=== PATIENT | female | born 1995 | race African-American/Black ===

== ENCOUNTER 2018-03-22 18:54 | Emergency (ER) | payer OTHER, SELFPAY ==
[2018-03-22 19:16] VITALS: BP 89/52; PULSE 84; RESP 15; TEMP 36.8; O2SAT 100
--- NOTE | 2018-03-22 19:19 | ED_ITS ---
HPI - Female Genitourinary <Priscila Wen PA-C - Last Filed: 03/22/18 21:58> General Chief complaint: Urogenital-Female Stated complaint: ITCHY GENITAL AREA Time Seen by Provider: 03/22/18 19:17 Source: patient Mode of arrival: ambulatory Limitations: no limitations History of Present Illness HPI Narrative: This 23-year-old female comes in due to 2 day history of vaginal itching and irritation. She has had some new discharge that she states is yellowish in color. She states that she does not have any pelvic pain or dysuria. She states it only feels like the tissue itself is irritated. She has not abdominal pain, fever or any other new complaints. She thinks this might be similar to previous yeast infection. She has not been on any new medications or antibiotics. She denies possibility of , LMP 2 weeks ago. She is monogamous, states she did have an STD panel recently which was negative. Related Data Home Medications Medication Instructions Recorded Confirmed No Known Home Medications 03/22/18 03/22/18 Allergies Allergy/AdvReac Type Severity Reaction Status Date / Time Sulfa (Sulfonamide Allergy Verified 03/22/18 19:16 Antibiotics) Review of Systems <Priscila Wen PA-C - Last Filed: 03/22/18 21:58> Review of Systems All systems reviewed & are unremarkable except as noted in HPI and below Exam <Priscila Wen PA-C - Last Filed: 03/22/18 21:58> Narrative Exam Narrative: GENERAL APPEARANCE: Patient sitting comfortably, in no distress. LUNGS: Clear to auscultation bilaterally. HEART: Rate and rhythm regular without murmur, normal S1 and S2, no S3 or S4. ABDOMEN: Soft, nontender, nondistended : Normal external genitalia, normal vaginal mucosa, there is a small amount of white discharge, normal cervix without lesions, no palpable uterine or adnexal masses or tenderness, no CMT Initial Vital Signs Initial Vital Signs: Vital Signs Temperature 98.3 F 03/22/18 19:16 Pulse Rate 84 03/22/18 19:16 Respiratory Rate 15 03/22/18 19:16 Blood Pressure 89/52 L 03/22/18 19:16 Pulse Oximetry 100 03/22/18 19:16 <Jacob Lopes MD - Last Filed: 04/26/18 08:17> Initial Vital Signs Initial Vital Signs: Vital Signs Temperature 98.3 F 03/22/18 19:16 Pulse Rate 84 03/22/18 19:16 Respiratory Rate 15 03/22/18 19:16 Blood Pressure 89/52 L 03/22/18 19:16 Pulse Oximetry 100 03/22/18 19:16 Course <Priscila Wen PA-C - Last Filed: 03/22/18 21:58> Orders Ordered: ED Orders 03/22/18 19:12 Urine Chlamydia Gonorrhea PCR Stat 03/22/18 19:35 Wet Prep Tric BV Cornelia Stat Vital Signs - 8 hr 03/22/18 19:16 03/22/18 21:12 Temperature 98.3 F 98.6 F Pulse Rate 84 90 Respiratory Rate 15 16 Blood Pressure 89/52 L 118/66 Pulse Oximetry 100 100 <Jacob Lopes MD - Last Filed: 04/26/18 08:17> Orders Ordered: ED Orders 03/22/18 19:12 Urine Chlamydia Gonorrhea PCR Stat 03/22/18 19:35 Wet Prep Tric BV Cornelia Stat Vital Signs - 8 hr 03/22/18 19:16 03/22/18 21:12 Temperature 98.3 F 98.6 F Pulse Rate 84 90 Respiratory Rate 15 16 Blood Pressure 89/52 L 118/66 Pulse Oximetry 100 100 MDM - Female Genitourinary <Priscila Wen PA-C - Last Filed: 03/22/18 21:58> Lab Data Attestation: I reviewed the patient's lab results. POC UA WNL, UPG negative, CORINNE/[place]et [place] negative Lab Results 03/22/18 Range/Units 19:12 Ur Chlamydia DNA (PCR) Not detected N gonorrhoeae DNA (PCR) Not detected <Jacob Lopes MD - Last Filed: 04/26/18 08:17> Lab Data Lab Results 03/22/18 Range/Units 19:12 Ur Chlamydia DNA (PCR) Not detected N gonorrhoeae DNA (PCR) Not detected Discharge Plan Departure Patient Disposition: Home, Self-Care Clinical Impression: Vaginal discharge Discharge Date/Time: 03/22/18 21:16 Interventions: ED Discharge Assessment Last Done: 03/22/18 21:12 Instructions: DI for Vaginal Discharge, DI for Vaginal Itching Activity Restrictions/Additional Instructions: There is no evidence of vaginal or urinary infection today on your testing. The discharge looks a little bit like yeast and you are having similar symptoms , so if you wish it is okay to try an [id number] use treatment such as Monistat. 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 I am unable to determine appropriateness of management without personally examining the pt.
[2018-03-22 20:57] LABS: Urine N gonorrhoeae NOT DETECTED
[2018-03-22 20:58] LABS: Urine Chlamydia NOT DETECTED
[2018-03-22 21:12] VITALS: BP 118/66; PULSE 90; RESP 16; TEMP 37; O2SAT 100
== END 2018-03-22 21:16 | disposition home or self-care (01) ==
PROVIDERS: Emergency Provider Internal Medicine
DX: N89.8 Other specified noninflammatory disorders of vagina (principal)
CPT/HCPCS: 81003; 81025; 87210; 87491; 87591; 99283

== ENCOUNTER 2018-10-19 18:57 | Emergency (ER) | payer OTHER, SELFPAY ==
[2018-10-19 19:18] VITALS: BP 123/66; PULSE 84; RESP 18; O2SAT 95
--- NOTE | 2018-10-19 19:31 | ED.SKABFB ---
HPI - Skin/Abscess/Foreign Bdy General Chief complaint: Skin/Abscess/Foreign Body Stated complaint: rash arm pits x2-3 days Time Seen by Provider: 10/19/18 19:30 Source: patient Mode of arrival: ambulatory Limitations: no limitations History of Present Illness HPI narrative: 23-year-old female, daily smoker presents with a chief complaint of an itchy rash and bilateral axillas for the past 2-3 days. She denies fever nor chills, nausea or vomiting. She denies any new medicines, deodorants or other abnormal activities. She denies any history of the same. MD complaint: rash Onset (ago): day(s) Tetanus up to date: yes Severity: mild Quality: pruritic Treatments prior to arrival: OTC topical medication Related Data Previous Rx's Medication Instructions Recorded doxycycline hyclate 100 mg PO BID #20 tab 10/19/18 hydroxyzine pamoate [Vistaril] 25 mg PO Q6-8H PRN #10 cap 10/19/18 Allergies Allergy/AdvReac Type Severity Reaction Status Date / Time Sulfa (Sulfonamide Allergy Verified 03/22/18 19:16 Antibiotics) Review of Systems Constitutional Denies chills, Denies fever(s), Denies lethargy and Denies weakness Eyes Denies change in vision, Denies eye discharge, Denies irritation and Denies loss of vision ENT Ears, Nose, Mouth, and Throat: Denies change in voice, Denies neck pain and Denies sore throat Cardiovascular Denies chest pain, Denies irregular heart rhythm, Denies lightheadedness, Denies palpitations, Denies dyspnea, Denies dyspnea on exertion and Denies orthopnea Respiratory Denies cough, Denies dyspnea, Denies dyspnea on exertion and Denies wheezing Gastrointestinal Gastrointestinal: Denies abdominal pain, Denies change in bowel habits, Denies diarrhea, Denies nausea and Denies vomiting Genitourinary Denies hematuria, Denies flank pain, Denies urinary incontinence and Denies urinary urgency Musculoskeletal Denies neck pain Integumentary/Breasts Reports pruritus, Denies erythema, Reports rash and Denies wounds Neurologic Denies confusion, Denies loss of vision and Denies weakness Psychiatric Denies anxiety, Denies confusion, Denies depression, Denies homicidal ideation and Denies suicidal ideation Endocrine Denies palpitations Hematologic/Lymphatic Denies easy bruising Allergic/Immunologic Denies wheezing PFSH Medical History Healthy female (Chronic) Social History Smoking Status: Current every day smoker alcohol intake: current substance use type: does not use Exam Narrative Exam Narrative: GEN: AOx3 and in mild distress EYES: Pupils are equal, round, and reactive to light and accommodation. Extraoccular muscles are intact bilaterally. There is no subconjunctival hemorrhage or exudate. CHEST: Lungs are clear to auscultation bilaterally and free of wheezes, rales, or rhonchi. Heart rate is regular rhythm, there are no murmurs, clicks, rubs, or gallops. There is no chest wall tenderness. ABD: Abdomen is soft and nontender. There is no guarding or rebound. Bowel sounds are normal in all 4 quadrants. There is no mass or organomegaly. EXT: Full painless ROM of all extremities with no loss of sensation or strength. SKIN: Pruritic, erythematous rash confined to bilateral axilla. No pain, no induration, small pustules noted Initial Vital Signs Initial Vital Signs: Vital Signs Pulse Rate 84 10/19/18 19:18 Respiratory Rate 18 10/19/18 19:18 Blood Pressure 123/66 10/19/18 19:18 Pulse Oximetry 95 10/19/18 19:18 Course Orders Ordered: Discontinued Medications Doxycycline Hyclate (Vibramycin) 100 mg PO NOW ONE Stop: 10/19/18 19:47 Last Admin: 10/19/18 19:53 Dose: 100 mg Hydroxyzine Pamoate (Vistaril) 25 mg PO NOW ONE Stop: 10/19/18 19:51 Last Admin: 10/19/18 19:53 Dose: 25 mg Vital Signs - 8 hr 10/19/18 20:19 Pulse Rate 94 H Respiratory Rate 15 Blood Pressure 114/68 Pulse Oximetry 98 Discharge Plan Departure Patient Disposition: Home Clinical Impression: Folliculitis Discharge Date/Time: 10/19/18 20:20 Interventions: ED Discharge Assessment Last Done: 10/19/18 20:19 Instructions: DI for Folliculitis Activity Restrictions/Additional Instructions: *You have been diagnosed with [ bilateral axillary folliculitis ] *What to do: *Take medications as directed *Follow up with your primary care provider in 2-3 days, call for an appointment. Let them know you were seen in the Emergency Department and that we ask that you be seen in follow up *Return to ER if you should have any new, worsening or concerning symptoms Prescriptions: New doxycycline hyclate 100 mg tablet 100 mg PO BID Qty: 20 RF: 0 hydroxyzine pamoate [Vistaril] 25 mg capsule 25 mg PO Q6-8H PRN (Reason: itching) Qty: 10 RF: 0
[2018-10-19] MEDS: hydrOXYzine pamoate 25 MG CAPSULE PO (19:53)
[2018-10-19] MEDS: DOXYCYCLINE HYCLATE 100 MG TABLET PO (19:53)
[2018-10-19 20:19] VITALS: BP 114/68; PULSE 94; RESP 15; O2SAT 98
== END 2018-10-19 20:20 | disposition home or self-care (01) ==
PROVIDERS: Emergency Provider Emergency Medicine
DX: L73.9 Follicular disorder, unspecified (principal)
CPT/HCPCS: 99282; 99283

== ENCOUNTER → 2019-05-08 19:21 | Outpatient (CLI) | payer OTHER, SELFPAY | PROVIDERS: Visit Provider Physician Assistant | DX: B37.9 Candidiasis, unspecified (principal) | CPT/HCPCS: 87210 ==